=== PATIENT | female | born 1965 | race Caucasian/White ===

== ENCOUNTER 2021-04-27 06:27 | Day surgery (SDC) | payer OTHER ==
[2021-04-15 18:10] VITALS: BMI 25.0
[2021-04-27] MEDS ORDERED: LIDOCAINE HCL/PF 2% SDV 5ML VIAL ONE (07:21)
[2021-04-27] MEDS ORDERED: DEXAMETHASONE SOD PHOSPHATE 4 MG/1 ML VIAL ONE (07:21)
[2021-04-27] MEDS ORDERED: ceFAZolin SODIUM 1 GM VIAL ONE ×2 (07:21→07:28)
[2021-04-27] MEDS ORDERED: ONDANSETRON 4 MG/2 ML VIAL ONE (07:21)
[2021-04-27] MEDS ORDERED: MIDAZOLAM HCL 2 MG/2 ML SINGLE DOSE VIAL ONE ×2 (07:22→07:50)
[2021-04-27] MEDS ORDERED: PROPOFOL 20 ML ONE (07:22)
[2021-04-27] MEDS ORDERED: GENTAMICIN SO4 80 MG/2 ML VIAL ONE (07:28)
[2021-04-27] MEDS ORDERED: SUCCINYLCHOLINE CHLORIDE 200 MG/10 ML SYRINGE ONE (07:35)
[2021-04-27] MEDS ORDERED: ACETAMINOPHEN INJECTION 100 ML IVPB ONE (07:50)
[2021-04-27] MEDS ORDERED: DESFLURANE GAS 240 ML BOTTLE IH ONE (09:45)
[2021-04-27] MEDS ORDERED: oxyCODONE HCL 5 MG TABLET PO PRN ×4 (10:05→10:17)
[2021-04-27] MEDS ORDERED: ONDANSETRON 4 MG/2 ML VIAL IVPUSH PRN (10:05)
[2021-04-27] MEDS ORDERED: LACTATED RINGERS SOLUTION 1,000 ML IV SCH ×2 (10:15→10:30)
[2021-04-27] MEDS ORDERED: ONDANSETRON 4 MG/2 ML VIAL IVPB PRN (10:17)
[2021-04-27 11:54] VITALS: TEMP 98
[2021-04-27 11:57] VITALS: BP 107/70; PULSE 72
== END 2021-04-27 12:25 | disposition home or self-care (01) ==
LOC: FASU 06:27
PROVIDERS: ATTEND Plastic Surgery
PROC: 0HPU0JZ Removal of Synthetic Substitute from Left Breast, Open Approach (ICD-10-PCS; 2021-04-27)
PROC: 0HPT0JZ Removal of Synthetic Substitute from Right Breast, Open Approach (ICD-10-PCS; 2021-04-27)
PROC: 0HRV0JZ Replacement of Bilateral Breast with Synthetic Substitute, Open Approach (ICD-10-PCS; 2021-04-27)
PROC: 0HNV0ZZ Release Bilateral Breast, Open Approach (ICD-10-PCS; principal; 2021-04-27 08:35)
DX: T85.49XA Other mechanical complication of breast prosthesis and implant, initial encounter (principal); Y82.8 Other medical devices associated with adverse incidents; Y92.9 Unspecified place or not applicable; Z85.3 Personal history of malignant neoplasm of breast
CPT/HCPCS: 19330; 19342; L8600; 88300-TC; 94760; J0131